=== PATIENT | male | born 1985 | race Caucasian/White ===

== ENCOUNTER 2017-10-09 18:59 | Emergency (ER) | payer OTHER, BC ==
[2017-10-09] MEDS ORDERED: AMOXICILLIN/POTASSIUM CLAV 875MG/125MG TABLET PO ONE (19:25)
--- NOTE | 2017-10-09 19:44 | Emergency Department Record ---
History of Present Illness - General Chief Complaint: Laceration(s) Stated Complaint: LACERATION ON LEFT WRIST Time Seen by Provider: 10/09/17 19:14 Source: Patient Mode of Arrival: Ambulatory Limitations: No limitations - History of Present Illness Initial Commments: The patient suffered a dog bite to the L wrist area about an hour ago. It was his own dog and it was mildly provoked. He was bit thru his coat. The patient denies any arm or hand numbness, tingling or weakness. His Td is UTD and his dog 's rabies shots are UTD also. Onset/Timin -: Minutes(s) - [place] Coma Scale Eye Response: (4) Open spontaneously Motor Response: (6) Obeys commands Verbal Response: (5) Oriented [place] Total: 15 - Related Data Hx Tetanus Toxoid Vaccination: Yes Year of Tetanus Vaccination: 2015 Patient Tetanus UTD (within 5 yrs): Yes Previous Rx's Medication Instructions Recorded Amoxicillin/Potassium Clav 1 tab PO BID #13 tab 10/09/17 [Augmentin 875-125 Tablet] Allergies Allergy/AdvReac Type Severity Reaction Status Date / Time No Known Drug Allergies Allergy Verified 10/09/17 19:11 Travel Screening - Travel/Exposure Within Last 30 Days Have you traveled within the last 30 days?: No - Travel Symptoms Symptom Screening: None Review of Systems Constitutional: Denies: Chills, Fever Past Medical History - SOCIAL HISTORY Smoking Status: Never smoker Alcohol Use: Occasional Drug Use: None - RESPIRATORY Hx Respiratory Disorders: No - CARDIOVASCULAR Hx Cardio Disorders: No - NEURO Hx Neuro Disorders: No - GI Hx GI Disorders: No - Hx Genitourinary Disorders: No - MUSCULOSKELETAL Hx Musculoskeletal Disorders: No - PSYCH Hx Psych Problems: No - HEMATOLOGY/ONCOLOGY Hx Hematology/Oncology Disorders: No Family Medical History Any Significant Family History?: No Family Hx Comment (NOT TO BE USED IN PLACE OF ITEMS BELOW): DENIES Physical Exam - General General Appearance: Alert, Oriented x3, Cooperative, No acute distress - Head Head exam: Atraumatic, Normocephalic - Eye Eye exam: Normal appearance, PERRL - Extremities Extremities exam: Full ROM, Tenderness (There is very mild tenderness around the bite wound.). negative: Normal inspection (There is a 1 cm lac to the ulnar side of the L wrist. The L wrist and hand is NVI with normal sensation and motor function.) Image of Hand: 1 - 1 cm lac 2 - 1 cm lac. Course Vital Signs 10/09/17 19:11 Temperature 98.9 F Pulse Rate [ 83 Pulse Ox Probe] Respiratory 16 Rate Blood Pressure 138/99 [Left Arm] Pulse Ox 99 - Reevaluation(s) Reevaluation #1: Procedure note: The L wrist lac was anesth. with 1.5 cc's Lido 1% with Epi and prepped with Betadine. The wound was explored and did not involve any tendon or nerve. The lac was then copiously irrigated with sterile saline and the wound approximated with a single 4.0 nylon suture. There were no complications. 10/09/17 19:43 Disposition Disposition: Discharge Clinical Impression: Laceration of wrist Qualifiers: Encounter type: initial encounter Laterality: left Qualified Code(s): S61.512A - Laceration without foreign body of left wrist, initial encounter Disposition: Home, Self-Care Condition: (2) Stable Instructions: Laceration (ED) Additional Instructions: Keep dry for 2 days then wash daily with soap and water. No soaking. Watch for signs of infection. Have the suture removed in 10 days. Return to the ER for any signs of infection. Take the Augmentin as directed. Prescriptions: Amoxicillin/Potassium Clav [Augmentin 875-125 Tablet] 1 tab PO BID #13 tab Forms: Patient Portal Access Time of Disposition: 19:45 Quality - Quality Measures Quality Measures: N/A - Blood Pressure Screening View Details: Yes Does Patient Have Any of the Following: No Blood Pressure Classification: Normal BP Reading Systolic Measurement: 118 Diastolic Measurement: 79 Screening for High Blood Pressure: < Normal BP, F/U Not Required > [[id number]]
== END 2017-10-09 19:50 | disposition home or self-care (01) ==
LOC: ER 18:59
DX: S61.512A Laceration without foreign body of left wrist, initial encounter (principal); W54.0XXA Bitten by dog, initial encounter
CPT/HCPCS: 12001; 99283